=== PATIENT | male | born 1960 | race Caucasian/White ===

== ENCOUNTER 2016-10-05 07:09 | Day surgery (SDC) | payer OTHER ==
[~2016-10-05] VITALS: Ht 170.2 cm; Wt 80.3 kg
[~2016-10-05 07:09] MED LIST: ALBU8.5H2 INHALATION; BECL8.7A5 IH; CeFAZolin 2 Gm/50 mL D5W IV Premix IV SCH; HYDR-4003 PO; Lactated Ringer's 1,000 ML IV SCH
[2016-10-05] MEDS ORDERED: fentaNYL-PF 50 mCg/mL 2 mL Inj ONE (07:10)
[2016-10-05] MEDS ORDERED: Propofol 10,000 mCg/mL 20 mL Inj ONE (07:10)
[2016-10-05] MEDS ORDERED: CeFAZolin 2 Gm/50 mL D5W Duplex Bag IV ONE (07:12)
[2016-10-05] MEDS ORDERED: Lactated Ringer's 1,000 ML IV ONE (07:32)
[2016-10-05 07:33] VITALS: BP 145/82; PULSE 73; RESP 14; O2SAT 97
[2016-10-05] MEDS ORDERED: Bacitracin 50,000 unit Inj IRRIGATION ONE (08:16)
--- NOTE | 2016-10-05 08:17 | PCM.HPANE ---
Patient Data Surgeon Admitting Provider: Attending Provider:Denis Márquez MD Primary Care Physician:Sandro Schneider DO Other Provider:Shen White Anesthesia Reason for Visit Left Achilles Tendon Rupture Ht/WT & BMI Height (Feet): 5 Height (Inches): 7.00 Weight (Kilograms): 80.300 Body Mass Index 27.00 Allergies Coded Allergies: No Known Allergies (Verified Allergy, Mild, 10/03/16) Past Anesthesia History Anesthesia History: Denies:: Abnormal Airway, Anesthesia Reactions (severe nausea afterward), Difficult Intubation, Fam Anesthesia Reaction, Fam Malignant Hypertherm, Malignant Hyperthermia Diabetes History Hx Diabetes?: No MRSA MRSA: No Medications Home Meds Incl Beta Sima: No Reported Medications Hydrocodone-Acetaminophen 5-325 mg 1 Each Tablet1 Tablet PO Q4H PRN For Pain Ref 0 10/03/16 Beclomethasone Dipropionate (Qvar)8.7 Gm Aer.w.adap8.7 Gm IH 06/25/15 Albuterol HFA (Proair HFA)8.5 Gm Hfa.aer.ad2 Puffs INHALATION Q4H #1 INHALER 06/25/15 Discontinued Reported Medications oxyCODONE-Acetaminophen 5-325 mg 1 Each Tablet1-2 Tab PO q4-6h PRN For Pain Ref 0 09/08/15 Cyclobenzaprine 10 Mg [id number] Mg PO Q8H PRN Spasm 09/08/15 History History of ENT Problems?: No HEENT History: Denies:: Abnormal Airway Cataracts Difficult Intubation Dysphagia Glaucoma Hearing Problem Sinus Problem TMJ Denture Type: None Teeth Condition: Within Normal Limits Hx of Heart Problems?: No Cardiovascular History: Denies:: AICD Abdominal Aortic Aneurism Atrial Fibrillation Cardiac Surgery Chest Pain Congestive Heart Failure Coronary Artery Disease Edema Heart Murmur Hypertension Irregular Heartbeat Pacemaker Rheumatic Fever Thrombophlebitis Valvular Heart Disease Hx of Respiratory Problem?: Yes Respiratory History: Positive for:: Asthma COPD Pneumonia (remote hx ) Use of Inhalers / NEBS (albuterol, QVar, Comp air) Denies:: Cough Dyspnea Emphysema Hemoptysis Oxygen Administration Pulmonary Embolism Tuberculosis Use of C-PAP Machine Hx Neurologic Problems?: No Neurological History: Denies:: Alzheimer's Disease CVA Dementia Dizziness Headaches Multiple Sclerosis Parkinson's Disease Seizures TIA Hx of GI Problems?: No Hx of Problems?: No Genitourinary History: Denies:: HX of Hemodialysis Kidney Stones Urinary Tract Infection HX of Peritoneal Dialysis: No Male Hx: Denies:: Prostate Problems Scrotal Mass Testicular Surgery Skin History: Denies:: History Skin Disorders? Pressure Ulcers Hx Musculoskeletal Problems?: Yes Musculoskeletal History: Positive for:: Back Injury (lumbar spondylolisthesis) Musculoskeletal Trauma (Lt achilles tendon) Denies:: Degenerative Joint Fibromyalgia Joint Replacement Myasthenia Gravis Osteoarthritis Rheumatoid Arthritis Systemic Lupus Hx of Psycho/Social Problems?: No Psycho Social History: Denies:: Anxiety Hx Depression Hx Surgeries?: Yes (rotator cuff) Hx Any Other Health Problems?: Yes Other History: Positive for:: Hospitalization (spinal surgery) Denies:: Cancer Endocrine Disease Thyroid Disease History Blood Transfusions: Positive for:: Accept Blood Products? Denies:: Blood Transfusions Hx Diabetes: No Hx Alcohol Use: NoHx Substance Use: No Smoking Status: Former Smoker Have You Smoked inLast 12 mo: No Stop/Bang Treated for Sleep Apnea?: No Do You Have a CPAP Machine?: No S-Snoring: Do You Snore Loudly: Yes T-Tired: feel tired, fatigued: No O-Obsered: Observed not breath: No P-Blood Pressure: treated: No B- Body Mass Index > 35 kg/m2: No A- Age over 50: Yes N- Neck Large Circumference: No G- Gender Male: Yes JANAK Total Score: 3 JANAK Risk Assessment: High Risk, =/>3 Yes Risk Assessment Category Category 1A: Patient has history of documented sleep apnea, and HAS NOT received any narcotic, sedative or anesthesia administration during this stay. Category 1B: Patient has history of documented sleep apnea, and HAS received any narcotic , sedative or anesthesia administration during this stay Category 2: Patient has SUSPECTED Obstructive Sleep Apnea, and HAS received any narcotic , sedative or anesthesia administration during this stay. Category 3: Patient has SUSPECTED Obstructive Sleep Apnea and HAS NOT received narcotic, sedative or anesthesia administration during this stay. Category 4: Outpatient in Procedural Areas with known sleep apnea or who screen positive for High Risk via the STOP/BANG questionnaire. Exam Exam Vital Signs Vital Signs Date Time Temp Pulse Resp B/P Pulse Ox O2 Delivery O2 Flow Rate FiO2 10/05/16 07:33 36.2 73 14 145/82 97 Room Air General Appearance: Alert, Oriented X3, Cooperative HEENT/AIRWAY: MP 1 Lungs: Clear to Auscultation Heart: Exam Unremarkable, Regular Rate/Rhythm, Normal S1, Normal S2, No Murmurs /Rubs/Gallops Meds/Labs/Diagnostics Admission Meds Current Medications Lactated Ringer's (Lr) 1,000 ml @ ud STK-MED ONCE IV Last administered on t 07:32; Start 10/05/16 at 07:32; Stop 10/05/16 at 07:33; Status DC Plan Impression Patient chart reviewed, patient interviewed and anesthestic plan with risks, benefits, and alternatives discussed, and informed consent obtained. NPO per Anesth. Guidelines: Yes ASA Physical Status: ASA2 Mod Systemic Disease Anesthetic Plan: Regional Block Bene/Risks/Altern/Consents: Yes HP Complete Prior to Induction: Yes Emile Funez MD Oct 05, 2016 08:17
[2016-10-05] MEDS ORDERED: Lactated Ringer's 500 ML IV PRN ×3 (08:18)
[2016-10-05] MEDS ORDERED: Lactated Ringer's 1,000 ML IV SCH ×3 (08:18)
[2016-10-05] MEDS ORDERED: Dexamethasone 4 mg/mL Inj IVPUSH PRN ×3 (08:20)
[2016-10-05] MEDS ORDERED: fentaNYL-PF 50 mCg/mL 2 mL Inj IVPUSH PRN ×3 (08:20)
[2016-10-05] MEDS ORDERED: Phenylephrine 10,000 mCg/mL Inj IVPUSH PRN ×3 (08:20)
[2016-10-05] MEDS ORDERED: MetoCLOpramide 5 mg/mL 2 mL Inj IVPUSH PRN ×3 (08:20)
[2016-10-05] MEDS ORDERED: HYDROmorphone 1 mg/mL Inj IVPUSH PRN ×3 (08:20)
[2016-10-05] MEDS ORDERED: Ondansetron 2 mg/mL 2 mL Inj IVPUSH PRN ×3 (08:20)
[2016-10-05] MEDS ORDERED: EPHEDrine Sulfate 50 mg/mL Inj IVPUSH PRN ×3 (08:20)
[2016-10-05] MEDS ORDERED: Ropivacaine-PF 0.5% 30 mL Inj INFILTRATE ONE (08:47)
[2016-10-05] MEDS ORDERED: HYDROcodone-APAP 5-325 mg Tablet PO PRN (09:00)
[2016-10-05] MEDS ORDERED: Ketorolac 15 mg/mL Inj IVPUSH ONE (09:00)
--- NOTE | 2016-10-05 09:04 | PCM.ORTHOP ---
Orthopedic Operative Report Date of Service: Oct 05, 2016 Pre Operative Diagnosis Left Achilles tendon rupture Post Operative Diagnosis Same Procedure Left Achilles tendon repair Surgeon Surgeon: Denis Márquez MD Assistants: Lamonte Velazquez Indication for Procedure Left Achilles tendon rupture Findings Left Achilles tendon rupture 8 cm superior to calcaneal tuberosity with 2 cm gapping Details of Procedure Indications: Lamonte Alarcon is a 56-year-old male who sustained a left achilles tendon rupture with inability to PF his ankle, + Moore test. MRI was performed and showed a complete achilles tendon tear. Non operative measures as well as operative intervention offerred and explained. At this time the patient desires to pursue surgical care. Indications, operative risks, potential outcomes and benefits discussed and reviewed in detail. Operative risks discussed included but were not limited to infection, continued pain, increasing pain, no improvement, scarring, stiffness, loss of motion, need for lengthy rehabilitation in the postoperative phases, worsening of the condition, need for revision and/or further surgical care, fracture of bone, loosening of prosthesis or implants either in the short-term or long-term, compromise to life and/or limb, bleeding , blood clots, compartment syndrome issues, transfusion risks, allograft risks, potential injury to associated structures which may include nerve, vessel, muscle, tendon, ligament, and/or bone or cartilage which may result in loss of muscle strength, changes or losses in sensation, and/or limb dysfunction or deformity, less prevalent complications, unforeseen circumstances. Both written and verbal consent were obtained. All questions were answered and thoroughly reviewed. Pre-operative evaluation/clearance to be performed by anesthesia team , prior to operative intervention for evaluation of medical preparedness to undergo anesthesia and operative stress. Instructions for this/these evaluations were given to the patient and appropriate family/companions in attendance. Description of Operation: The patient was brought to the operating room. With both surgical and anesthesia faculty present a "time-out" was performed during which the patient's identify was verified by his full name and , the intended procedure and surgical site was confirmed, and patient's allergies were reviewed. Sciatic block was performed preoperatively with sedation and the patient was placed in the prone position on the operating table. Special attention was paid to ensure all bony prominences were well padded. A well padded tourniquet was placed on the thigh. The leg was then prepped and draped in the usual sterile fashion from the foot up to the knee. Preoperative antibiotics were given in the form of ancef. The medial and lateal borders of the achilles tendon were then marked and a defect appreciated approximately 8 cm proximal to the insertion. The leg was the exsanguinated and the tourniquet inflated. An approximately 8cm long incision was made over the medial aspect of the achilles tendon centered over the defect. The incision was carried down through the skin and the overlying paratenon. The was a rupture of the entire achilles tendon with retraction of the proximal stump. The edges of the ruptured portion of the tendon were then lightly debrided with a 15 blade. The tendon was then repair with #5 fiberwire in a gift box modified Krakw fashion followed by a simple vicryl sutures. The foot was maintained in plantarflexion throughout the entirety of the case. The paratenon was then repaired over the repaired tendon using 0 vicryl suture. The skin was then closed using 2-0 vicryl and 3-0 nylon suture. A well padded splint was applied. Estimated blood loss was 10 cc. There were no immediate complications. The patient was transferred to the PACU in stable condition. Please keep dressing clean dry and intact. Do not remove dressing until follow- up in clinic. Do not weight-bear on the affected extremity. You may use crutches or a walker/scooter to help with ambulation on your unaffected extremity. You will follow up in clinic in 10-14 days for suture removal, and placement of new Steri-Strips. You will follow-up with me in clinic at this time with adjustment of heel with more dorsiflexion. You will follow-up with me at 6 weeks postop and may start weightbearing as tolerated if instructed. Please keep the affected extremity elevated when possible. You may use ice and/ or heat as needed for comfort (preferably ice during the first 48-72 hours). Please feel free to call with any further questions, comments, and/or concerns. Grafts, Implants: None, Implants-See Implant Record Complications There were no periprocedural complications identified. Condition Stable Anesthetic Administered: GA Catheters: None Output, Estimated Blood Loss: 10 Blood Admin during surgery: No Surgical Cast or Splint: Well-padded Short Leg Splint Surgical Specimen Removed: No Specimen sent to Pathology: No copies to: Denis Márquez MD, Christopher L MD Oct 05, 2016 09:04
[2016-10-05 09:11] VITALS: BP 136/81; PULSE 75; RESP 13; O2SAT 96
--- NOTE | 2016-10-05 09:14 | PCM.ANEP1 ---
Post Anesthesia PACU Phase 1 Assessment Date of Service: Oct 05, 2016 Vital Signs Vital Signs Date Time Temp Pulse Resp B/P Pulse Ox O2 Delivery O2 Flow Rate FiO2 10/05/16 07:33 36.2 73 14 145/82 97 Room Air Anesthetic Administered: MAC Level of Alertness: Awake, talking Pain: No Nausea or Vomiting: No CV Function & Hydration Stable: Yes Airway Device: Oxygen Delivery: Room Air Lungs: Clear to Auscultation Dermatome Level: Full Sensation PACU Phase 2 Assessment Patient Instructions Provided: Yes Emile Funez MD Oct 05, 2016 08:58
[2016-10-05 09:15] VITALS: BP 131/77; PULSE 72; RESP 14; O2SAT 95
[2016-10-05 09:48] VITALS: BP 141/71; PULSE 72; RESP 16; O2SAT 98
== END 2016-10-05 23:59 | disposition home or self-care (01) ==
LOC: SAS 07:09
PROVIDERS: ATTEND Orthopaedic Surgery
DX: S86.012A Strain of left Achilles tendon, initial encounter (principal); X50.0XXA Overexertion from strenuous movement or load, initial encounter; J45.909 Unspecified asthma, uncomplicated; J44.9 Chronic obstructive pulmonary disease, unspecified; M43.16 Spondylolisthesis, lumbar region; Y93.79 Activity, other specified sports and athletics; Y92.9 Unspecified place or not applicable; Y99.8 Other external cause status; Z87.891 Personal history of nicotine dependence
CPT/HCPCS: 27650; 76942; C1713; J0690; J2250; J2795; J3010; J7120